=== PATIENT | male | born 1960 | race Caucasian/White ===

== ENCOUNTER 2025-09-16 12:32 | Outpatient (CLI) | payer OTHER, SELFPAY | END 2025-09-16 12:33 | disposition home or self-care (01) | PROVIDERS: PCP Family Medicine; Visit Provider Family Medicine | DX: N39.0 Urinary tract infection, site not specified (principal); I10 Essential (primary) hypertension; R73.03 Prediabetes | CPT/HCPCS: 80048; 82533; 83835; 87086; G0103 ==

== ENCOUNTER 2025-10-05 12:07 | Outpatient (CLI) | payer OTHER, SELFPAY | END 2025-10-05 12:08 | disposition home or self-care (01) | LOC: OP CLINIC 12:09 | PROVIDERS: PCP Family Medicine; Visit Provider Surgery | DX: Z53.9 Procedure and treatment not carried out, unspecified reason (principal) ==

== ENCOUNTER 2025-10-06 12:00 | Outpatient (CLI) | payer OTHER, SELFPAY ==
--- NOTE | 2025-10-06 13:52 | P.ANES_ITS ---
Anesthesia Charges Start Date/Time Anesthesia Start Date: 10/06/25 Anesthesia Start Time: 13:00 Stop Date/Time Anesthesia Stop Date: 10/06/25 Anesthesia Stop Time: 13:44 Coding CPT Codes CPT Codes: ANES LWR INTST NDSC NOS - [id number] ([id number]) P3 - PATIENT W/SEVERE SYS DISEASE, QZ - FLAG CAR DRIVER SVC W/O SHIP PURSER BY
--- NOTE | 2025-10-06 13:52 | W.ANESCHARGE ---
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
== END 2025-10-06 12:01 | disposition home or self-care (01) ==
LOC: OP CLINIC 12:02
PROVIDERS: PCP Family Medicine; Visit Provider Surgery
DX: D12.2 Benign neoplasm of ascending colon (principal); D12.3 Benign neoplasm of transverse colon; D12.4 Benign neoplasm of descending colon; K57.30 Diverticulosis of large intestine without perforation or abscess without bleeding; Z86.0100 Personal history of colon polyps, unspecified
CPT/HCPCS: 00811; 45385; J2704